=== PATIENT | male | born 1955 | race Caucasian/White ===

== ENCOUNTER 2024-06-23 09:38 | Outpatient (CLI) | payer BC | END 2024-06-23 09:39 | disposition home or self-care (01) | LOC: CSHCT 09:38 | PROVIDERS: ATTEND Orthopaedic Surgery | DX: Z01.818 Encounter for other preprocedural examination (principal); M19.021 Primary osteoarthritis, right elbow; M25.529 Pain in unspecified elbow; S52.131A Displaced fracture of neck of right radius, initial encounter for closed fracture; M25.421 Effusion, right elbow ==